=== PATIENT | female | born 1975 | race African-American/Black ===

== ENCOUNTER 2016-11-26 13:35 | Observation (INO) | payer BC, OTHER ==
[2016-12-04] MEDS ORDERED: NAPR500T PO (07:52)
[2016-12-04] MEDS ORDERED: HYDR-971 PO (07:52)
== END 2016-11-26 14:40 | disposition home or self-care (01) ==
LOC: 3 SO LND 13:35
PROVIDERS: ADMIT Obstetrics & Gynecology; ATTEND Obstetrics & Gynecology
DX: O99.283 Endocrine, nutritional and metabolic diseases complicating pregnancy, third trimester (principal); Z3A.35 35 weeks gestation of pregnancy
CPT/HCPCS: G0378; G0379; 59025

== ENCOUNTER 2016-12-01 20:08 | Inpatient (IN) | payer BC, OTHER ==
[~2016-12-01] VITALS: Ht 160 cm; Wt 103.9 kg
[2016-12-01] MEDS ORDERED: IBUPROFEN 800 MG TABLET. PO PRN (20:15)
[2016-12-01] MEDS ORDERED: TERBUTALINE 1 MG/ML VIAL. SQ PRN (20:15)
[2016-12-01] MEDS ORDERED: 0.9 % SODIUM CHLORIDE 10 ML DISP.SYRIN. IV PRN (20:15)
[2016-12-01] MEDS ORDERED: BUTORPHANOL 2 MG VIAL. IV PRN (20:15)
[2016-12-01] MEDS ORDERED: LIDOCAINE 1% PF 30 ML VIAL. INJ PRN (20:15)
[2016-12-01] MEDS ORDERED: OXYTOCIN 30 UNIT/500 ML PREMIX 500 ML IV PRN ×2 (20:15)
[2016-12-01] MEDS ORDERED: DINOPROSTONE 10 MG SUPP.VAG VG ONE (20:45)
[2016-12-01] MEDS ORDERED: AMPICILLIN 2 GM in IV NORMAL SALINE 100ML 100 ML IV ONE (21:00)
[2016-12-01 21:05] VITALS: BP 134/81
[2016-12-01] MEDS: IV RINGERS,LACTATED 1000ML 1,000 ML IV SCH (21:52)
[2016-12-01 21:58] LABS: BILIRUBIN,URINE NEGATIVE (NEG); GLUCOSE,URINE NEGATIVE (NEG); NITRITE,URINE NEGATIVE (NEG); PROTEIN,URINE NEGATIVE (NEG-TRACE)
[2016-12-01 22:04] LABS: BACTERIA,URINE FEW /HPF (0-FEW); RBC,URINE 0 /HPF (0-2); SQUAMOUS EPITHELIAL CELL,UR FEW /LPF; WBC,URINE 0 /HPF (0-4)
[2016-12-01 22:11] LABS: HEMATOCRIT 35.4 % (36.0-47.0); HEMOGLOBIN 11.7 g/dL (12.0-15.5); RED BLOOD COUNT 4.09 x10^6/uL (3.50-5.40); RED CELL DISTRIBUTION WIDTH 13.6 % (11.5-14.5); WHITE BLOOD COUNT 6.1 x10^3/uL (4.0-11.0)
[2016-12-01 22:30] LABS: ALBUMIN 2.5 g/dL (3.4-5.0); ALBUMIN/GLOBULIN RATIO 0.6 (1.0-1.7); CALCIUM 8.8 mg/dL (8.5-10.1); CREATININE 0.6 mg/dL (0.6-1.0); GFR 134.7; POTASSIUM 3.8 mmol/L (3.5-5.1); TOTAL BILIRUBIN 0.3 mg/dL (0.2-1.0); TOTAL PROTEIN 6.4 g/dL (6.4-8.2); URIC ACID 3.8 mg/dL (2.6-6.0)
[2016-12-02] MEDS ORDERED: AMPICILLIN 1 GM in IV NORMAL SALINE 50ML 50 ML IV SCH (01:00)
--- NOTE | 2016-12-02 04:36 | PDOC1 ---
OB - History Hx of Present Care: Good Care Ultrasounds: Abnormal US findings (IUGR) Obstetrical Complications: Gestational Diabetes (CHTN) Medical Complications: Other (CHTN, Gestational DM) Past Family/Social History * Past Medical, Surgical, Family and Obstetric Histories reviewed from chart. Rubella: Immune RPR/VDRL: Negative GBS Status: Negative HBsAG: Negative OB - Chief Complaint & HPI Date of Admission: Date of Admission: Dec 01, 2016 at 20:08 Chief Complaint/History : 3 Para: 2 EGA: 39 Reason for admission: induction of labor Indication for induction: other (IUGR, CHTN and GD DM) Admission Nurse Assessment Rev: Yes Problems: OB - Admission Exam Physical Exam Vitals: VS - Last 72 Hours, by Label Date Time Temp Pulse Resp B/P Pulse Ox O2 Delivery O2 Flow Rate FiO2 12/01/16 21:05 98.0 109 20 134/81 Room Air 98.0 HEENT: Normal Heart: Regular Rate Lungs: Clear Abdomen: Gravid, Non tender, Soft Extremities: Edema Reflexes: Normal Cervical Dilatation: 2cm Effacement: 50% Station: -3 Membranes: Intact Heart Rate: Normal Accelerations: Accelerations Present Decelerations: No decelerations Contractions on Admission: None Intensity: Mild Text A: 37 wks IUP IUGR CHTN Gestational DM P: Admit for IOL with cervidil, then pitocin in am. PATTY TSANG Jr, MD Dec 02, 2016 04:36
[2016-12-02] MEDS ORDERED: AMPICILLIN 2 GM in IV NORMAL SALINE 100ML 100 ML IV ONE (06:00)
[2016-12-02] MEDS: IV RINGERS,LACTATED 1000ML 1,000 ML IV SCH ×2 (07:30→16:05)
[2016-12-02] MEDS: FENTANYL PF 100 MCG/2 ML VIAL. IV PRN ×2 (09:25→15:27)
[2016-12-02] MEDS: AMPICILLIN 1 GM in IV NORMAL SALINE 50ML 50 ML IV SCH ×2 (12:57→17:01)
[2016-12-02] MEDS ORDERED: ROPIVacaine 0.2% IN 0.9%NACL PF 40 MG/20 ML DISP.SYRIN. ONE ×2 (19:00→19:36)
[2016-12-02] MEDS ORDERED: L&D EPIDURAL CASSETTE 100 ML EP ONE (19:36)
[2016-12-02] MEDS ORDERED: EPHEDRINE PF IN SALINE 50 MG/5 ML DISP.SYRIN. IV PRN (20:15)
[2016-12-02] MEDS ORDERED: FENTANYL PF 100 MCG/2 ML VIAL. EPI ONE (20:15)
[2016-12-02] MEDS ORDERED: NALOXONE 0.4 MG/ML VIAL. IV PRN (20:15)
[2016-12-02] MEDS ORDERED: IV RINGERS,LACTATED 1000ML 1,000 ML IV SCH (20:15)
[2016-12-02] MEDS ORDERED: ONDANSETRON PF 4 MG/2 ML VIAL. IV PRN (20:15)
[2016-12-02] MEDS ORDERED: L&D EPIDURAL CASSETTE 100 ML EP PRN (20:15)
[2016-12-02] MEDS ORDERED: ROPIVacaine 0.2% PF 10 ML VIAL. EPI ONE (20:15)
[2016-12-02] MEDS ORDERED: MAG HYDROX/ALUMINUM HYDROX/SMC 30 ML ORAL.SUSP PO PRN (20:30)
[2016-12-02] MEDS ORDERED: BENZOCAINE 20% TOPICAL AEROSOL SPRAY 57GM CAN. TP PRN (20:30)
[2016-12-02] MEDS ORDERED: HYDROCORTISONE 1% TOPICAL OINTMENT 30GM TUBE. TP PRN (20:30)
[2016-12-02] MEDS ORDERED: 0.9 % SODIUM CHLORIDE 10 ML DISP.SYRIN. IV PRN (20:30)
[2016-12-02] MEDS ORDERED: ACETAMINOPHEN 325 MG TABLET. PO PRN (20:30)
[2016-12-02] MEDS ORDERED: DIPHENHYDRAMINE HCL 25 MG CAPSULE PO PRN (20:30)
[2016-12-02] MEDS ORDERED: ZOLPIDEM 5 MG TABLET. PO PRN (20:30)
[2016-12-02] MEDS ORDERED: MAGNESIUM HYDROXIDE 2,400 MG/30 ML ORAL.SUSP. PO PRN (20:30)
[2016-12-02] MEDS ORDERED: PHENYLEPH/MINERAL OIL/PETROLAT RECTAL OINTMENT 28GM TUBE. RC PRN (20:30)
[2016-12-02] MEDS ORDERED: HYDROCODONE/APAP 5/325MG TABLET. PO PRN (20:30)
[2016-12-02] MEDS ORDERED: OXYTOCIN 30 UNIT/500 ML PREMIX 500 ML IV PRN (20:30)
[2016-12-02] MEDS ORDERED: SIMETHICONE 80 MG TAB.CHEW PO PRN (20:30)
--- NOTE | 2016-12-02 20:42 | PDOC ---
VAGINAL DELIVERY DATE DATE: 12/02/16 TIME: 20:40 : 3 Para: 2 EDC: Dec 16, 2016 VAGINAL DELIVERY: VTX PLACENTA: Spontaneous SEX: Male WEIGHT Weight [ ] Nuchal Cord: Yes, Times 1, Loose Amniotic Fluid: Clear PAIN: Epidural EPISIOTOMY: No EXTENSION: No EBL 300cc COMPLICATIONS None CONDITION Stable Signs of Intrauterine Infectio: None Shoulder Dystocia: No DIAGNOSIS TIUP del Problems: DERECK DOUGHERTY MD Dec 02, 2016 20:42
[2016-12-02] MEDS: IBUPROFEN 800 MG TABLET. PO SCH (23:37)
[2016-12-02 23:59] VITALS: BP 129/73
[2016-12-03 02:01] VITALS: BP 137/92
[2016-12-03 06:16] VITALS: BP 125/80
[2016-12-03] MEDS ORDERED: FERROUS SULFATE 325 MG TABLET PO SCH (08:00)
[2016-12-03] MEDS: IBUPROFEN 800 MG TABLET. PO SCH (09:52)
[2016-12-03 12:41] VITALS: BP 135/90
--- NOTE | 2016-12-03 13:22 | PDOC ---
OB Progress Note Date of Service 12/03/16 Time of Evaluation 1320 Notes Pt. feeling well. No complaints. Lab Laboratory Tests Test 12/01/16 21:30 12/01/16 21:53 12/02/16 07:52 12/02/16 11:44 Urine Collection Type Unknown Urine Color Yellow Urine Clarity Clear Urine pH 7.0 Urine Specific Palmer 1.015 Urine Protein Negativemg/dL (NEG-TRACE) Urine Glucose (UA) Negativemg/dL (NEG) Urine Ketones (Stick) Tracemg/dL (NEG) Urine Blood Negative (NEG) Urine Nitrite Negative (NEG) Urine Bilirubin Negative (NEG) Urine Urobilinogen Dipstick 1.0mg/dL (0.2 mg/dL) Urine Leukocyte Esterase Negative (NEG) Urine RBC 0/HPF (0-2) Urine WBC 0/HPF (0-4) Urine Squamous Epithelial Cells Few/LPF Urine Bacteria Few/HPF (0-FEW) Urine Mucus Slight/LPF White Blood Count 6.1x10^3/uL (4.0-11.0) Red Blood Count 4.09x10^6/uL (3.50-5.40) Hemoglobin 11.7g/dL (12.0-15.5) Hematocrit 35.4% (36.0-47.0) Mean Corpuscular Volume 87fL (79-100) Mean Corpuscular Hemoglobin 29pg (25-35) Mean Corpuscular Hemoglobin Concent 33g/dL (31-37) Red Cell Distribution Width 13.6% (11.5-14.5) Platelet Count 248x10^3/uL (140-400) Sodium Level 140mmol/L (136-145) Potassium Level 3.8mmol/L (3.5-5.1) Chloride Level 104mmol/L (98-107) Carbon Dioxide Level 24mmol/L (21-32) Anion Gap 12 (6-14) Blood Urea Nitrogen 9mg/dL (7-20) Creatinine 0.6mg/dL (0.6-1.0) Estimated GFR (Cockcroft-Gault) 134.7 BUN/Creatinine Ratio 15 (6-20) Glucose Level 92mg/dL (70-99) Uric Acid 3.8mg/dL (2.6-6.0) Calcium Level 8.8mg/dL (8.5-10.1) Total Bilirubin 0.3mg/dL (0.2-1.0) Aspartate Amino Transf (AST/SGOT) 23U/L (15-37) Alanine Aminotransferase (ALT/SGPT) 37U/L (14-59) Alkaline Phosphatase 149U/L (46-116) Total Protein 6.4g/dL (6.4-8.2) Albumin 2.5g/dL (3.4-5.0) Albumin/Globulin Ratio 0.6 (1.0-1.7) RPR Titer Additional Testing Non reactive (Non Reactive) Glucose (Fingerstick) 92mg/dL (70-99) 68mg/dL (70-99) Test 12/02/16 15:58 12/03/16 04:10 12/03/16 04:52 Glucose (Fingerstick) 68mg/dL (70-99) 94mg/dL (70-99) Hematocrit 33.9% (36.0-47.0) Laboratory Tests Test 12/02/16 15:58 12/03/16 04:10 12/03/16 04:52 Glucose (Fingerstick) 68mg/dL (70-99) 94mg/dL (70-99) Hematocrit 33.9% (36.0-47.0) Medications Current Medications Sodium Chloride 3 ml 3 ml QSHIFT PRN IV AFTER MEDS AND BLOOD DRAWS; Start 12/01 at 20:15 Lactated Ringer's (Iv Lactated Ringers) 1,000 ml @ 125 mls/hr Q8H IV Last administered on 12/02/16t 16:05; Start 12/01/16 at 20:14 Butorphanol Tartrate (Stadol) 2 mg PRN Q1HR PRN IV Severe labor pain; Start at 20:15 Fentanyl Citrate (Fentanyl 2ml Vial) 100 mcg PRN Q30MIN PRN IV Severe pain Last administered on 12/02/16 15:27; Start 12/01/16 at 20:15 Terbutaline Sulfate (Brethine) 0.25 mg 1X PRN PRN SQ SEE COMMENTS; Start at 20:15; Stop 12/02/16 at 20:14; Status DC Lidocaine HCl 30 ml 30 ml 1X PRN PRN INJ SEE COMMENTS; Start 12/01/16 at 20:15 ; Stop 12/03/16 at 20:14 Oxytocin/Sodium Chloride 500 ml @ 0 mls/hr CONT PRN IV SEE I/O RECORD Last administered on 12/02/16 07:31; Start 12/01/16 at 20:15 Oxytocin/Sodium Chloride (Oxytocin Premix Infusion) 500 ml @ 0 mls/hr CONT PRN PRN IV Post delivery bleeding; Start 12/01/16 at 20:15 Dinoprostone (Cervidil) 10 mg 1X ONCE VG Last administered on 12/01/16 21:51 ; Start 12/01/16 at 20:45; Stop 12/01/16 at 20:46; Status DC Ibuprofen 800 mg 800 mg PRN Q8HRS PRN PO MODERATE PAIN; Start 12/01/16 at 20:15 Ampicillin Sodium 2 gm/Sodium Chloride 100 ml @ 200 mls/hr 1X ONCE IV ; Start 12/01/16 at 21:00; Stop 12/01/16 at 21:29; Status Cancel Ampicillin Sodium 1 gm/Sodium Chloride 50 ml @ 100 mls/hr Q4H IV ; Start at 01:00; Stop 12/02/16 at 01:00; Status DC Ampicillin Sodium 1 gm/Sodium Chloride 50 ml @ 100 mls/hr Q4H IV Last administered on 12/02/16 17:01; Start 12/02/16 at 10:00 Ampicillin Sodium 2 gm/Sodium Chloride 100 ml @ 200 mls/hr 1X ONCE IV Last administered on 12/02/16 09:23; Start 12/02/16 at 06:00; Stop 12/02/16 at 06:29 ; Status DC Lactated Ringer's (Iv Lactated Ringers) 1,000 ml @ 0 mls/hr Q0M IV ; Start at 20:15 Ephedrine Sulfate 10 mg PRN Q2MIN PRN IV IF SBP<90; Start 12/02/16 at 20:15 Naloxone HCl (Narcan) 0.04 mg PRN Q1MIN PRN IV SEE COMMENTS; Start 12/02/16 at 20:15 Fentanyl Citrate 100 mcg 100 mcg 1X ONCE EPI ; Start 12/02/16 at 20:15; Stop at 20:29; Status DC Ropivacaine/ Fentanyl/NS (Yxuwbrmb-Rfuyc-BW 3 Mcg-0.1%) 100 ml @ 14 mls/hr CONT PRN EP PAIN Last administered on 12/02/16 20:12; Start 12/02/16 at 20:15 Ondansetron HCl (Zofran) 4 mg PRN Q6HRS PRN IV NAUSEA/VOMITING; Start 12/02/16 at 20:15 Ropivacaine (Naropin 0.2%) 20 ml 1X ONCE EPI ; Start 12/02/16 at 20:15; Stop at 20:29; Status DC Sodium Chloride 10 ml 10 ml QSHIFT PRN IV AFTER MEDS AND BLOOD DRAWS; Start at 20:30 Oxytocin/Sodium Chloride (Oxytocin Premix Infusion) 500 ml @ 62.5 mls/hr CONT PRN IV SEE I/O RECORD; Start 12/02/16 at 20:30; Stop 12/03/16 at 04:29; Status DC Acetaminophen (Tylenol) 650 mg PRN Q6HRS PRN PO MILD PAIN / TEMP Last administered on 12/02/16 23:37; Start 12/02/16 at 20:30 Ibuprofen (Motrin) 800 mg Q8HRS PO Last administered on 12/03/16 09:52; Start 12/02/16 at 22:00 Magnesium Hydroxide (Milk Of Magnesia) 2,400 mg PRN DAILY PRN PO CONSTIPATION; Start 12/02/16 at 20:30 Al Hydrox/Mg Hydrox/Simethicone (Mylanta Plus Xs) 30 ml PRN Q4HRS PRN PO HEARTBURN / GAS; Start 12/02/16 at 20:30 Simethicone (Gas-X) 80 mg PRN AFTMEALHC PRN PO GAS / BLOATING; Start 12/02/16 at 20:30 Diphenhydramine HCl (Benadryl) 25 mg PRN Q6HRS PRN PO ITCHING; Start 12/02/16 at 20:30 Benzocaine (Americaine) 1 spray PRN QID PRN TP TOPICAL PAIN; Start 12/02/16 at 20:30 Phenyleph/Shark Oil/Min Oil/Petrol (Preparation H) 1 carl PRN QID PRN RC RECTAL PAIN; Start 12/02/16 at 20:30 Hydrocortisone (Cortaid) 1 carl PRN QID PRN TP RECTAL PAIN; Start 12/02/16 at 20 :30 Ferrous Sulfate (Feosol) 325 mg BIDWMEALS PO ; Start 12/03/16 at 08:00; Stop at 08:00; Status DC Zolpidem Tartrate (Ambien) 5 mg PRN QHS PRN PO INSOMNIA, MAY REPEAT X1; Start 12/02/16 at 20:30 Info (Do NOT chart on this placeholder) 1 ea 1X PRN PRN MC SEE COMMENTS; Start 12/02/16 at 20:30 Acetaminophen/ Hydrocodone Bitart (Lortab 5/325) 1 tab PRN Q4HRS PRN PO PAIN; Start 12/02/16 at 20:30 Ropivacaine 40 mg 40 mg STK-MED ONCE .ROUTE ; Start 12/02/16 at 19:00; Stop at 08:49; Status DC Ropivacaine/ Fentanyl/NS (Vhvamiaf-Wqobf-VL 3 Mcg-0.1%) 100 ml @ As Directed STK-MED ONCE EP ; Start 12/02/16 at 19:36; Stop 12/03/16 at 10:00; Status DC Ropivacaine 40 mg STK-MED ONCE .ROUTE ; Start 12/02/16 at 19:36; Stop 12/03/16 at 10:00; Status DC Exam Abd: soft, non tender, fundus firm Assessment PPD#1 s/p Plan of Care: Continue current Tx, Mgmt PATTY TSANG Jr, MD Dec 03, 2016 13:22
[2016-12-03 17:40] VITALS: BP 120/81
[2016-12-03 23:09] VITALS: BP 128/89
[2016-12-04 05:30] VITALS: BP 132/79
--- NOTE | 2016-12-04 07:51 | PDOC3 ---
OB DISCHARGE SUMMARY DATE OF ADMISSION: 12/02/16 DATE OF DISCHARGE: 12/04/16 REASON FOR ADMISSION: Induction of labor PROCEDURES: NST, Ultrasound, Mgmt of Med Complications, Mgmt of OB Complications, Biophysicial Profile INTRAPARTUM PROCEDURES: Spontanous Vag Deliv OPERATIONS: None DISCHARGE DIAGNOSIS: Term Delivered DISCHARGE INFORMATION: Activity, Diet HOSPITAL COURSE Unremarkable CONDITION AT DISCHARGE Stable DERECK DOUGHERTY MD Dec 04, 2016 07:51
[2016-12-04] MEDS ORDERED: NAPR500T PO (07:52)
[2016-12-04] MEDS ORDERED: HYDR-971 PO (07:52)
[2016-12-04] MEDS: IBUPROFEN 800 MG TABLET. PO SCH (07:55)
[2016-12-04 11:00] VITALS: BP 151/87
[2016-12-04 16:30] VITALS: BP 129/78
== END 2016-12-04 18:19 | disposition home or self-care (01) | DRG 774 ==
LOC: OBSVTOIN 20:08 → 3 SO LND 20:08 → 3 NORTH 12-02 23:50
PROVIDERS: ADMIT Specialist; ATTEND Specialist
PROC: 3E033VJ Introduction of Other Hormone into Peripheral Vein, Percutaneous Approach (ICD-10-PCS; principal; 2016-12-02)
PROC: 10E0XZZ Delivery of Products of Conception, External Approach (ICD-10-PCS; 2016-12-02)
PROC: 3E0S3CZ (ICD-10-PCS; 2016-12-02)
PROC: 00HU33Z Insertion of Infusion Device into Spinal Canal, Percutaneous Approach (ICD-10-PCS; 2016-12-02)
DX: O24.429 Gestational diabetes mellitus in childbirth, unspecified control (principal); O10.92 Unspecified pre-existing hypertension complicating childbirth; O69.81X0 Labor and delivery complicated by cord around neck, without compression, not applicable or unspecified; Z3A.37 37 weeks gestation of pregnancy; Z37.0 Single live birth
CPT/HCPCS: 36415; 80053; 81001; 82947; 84550; 85014; 85027; 86593; 86850; 86900; 86901; J0290; J2590; J2795; J3010; J7120